=== PATIENT | male | born 1975 ===

== ENCOUNTER 2017-08-11 11:57 | Emergency (ER) | payer OTHER ==
--- NOTE | 2017-08-11 13:20 | UC ---
Skin Complaint HPI - HPI Summary HPI Summary: 8 DAYS OF ITCHY WHELP LIKE RASH DIFFUSELY OVER BODY. NO FEVER. NO RESPIRATORY DIFFICULTY OR TONGUE/LIP SWELLING. ATE AT A [employer] PRIOR TO ONSET OF SX. 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 BENADRYL IS HELPFUL. - History of Current Complaint Chief Complaint: [facility] Time Seen by Provider: 08/11/17 13:08 Stated Complaint: RASH Hx Obtained From: Patient Onset/Duration: Gradual Onset, Lasting Days, Still Present Timing: Constant Onset Severity: Moderate Current Severity: Moderate Pain Intensity: 0 Pain Scale Used: 0-10 Numeric Location: Diffuse Character: Pruritus, Hives, Raised Aggravating Factor(s): Touch Alleviating Factor(s): Antihistamines - BENADRYL - Allergy/Home Medications Allergies/Adverse Reactions: Allergies Allergy/AdvReac Type Severity Reaction Status Date / Time No Known Allergies Allergy Verified 08/11/17 12:19 Home Medications: Home Medications Diphenhydramine HCl [Benadryl Allergy 25 MG CAP] 25 mg PO TID PRN 08/11/17 [ History Confirmed 08/11/17] Review of Systems Constitutional: Negative Skin: Rash Respiratory: Negative Cardiovascular: Negative Gastrointestinal: Negative All Other Systems Reviewed And Are Negative: Yes PMH/Surg Hx/FS Hx/Imm Hx Previously Healthy: Yes - Surgical History Surgical History: Yes Surgery Procedure, Year, and Place: benign tumor removed behind ear - Family History Known Family History: Positive: Hypertension - Social History Alcohol Use: None Substance Use Type: None Smoking Status (MU): Never Smoked Tobacco Physical Exam Triage Information Reviewed: Yes Appearance: Well-Appearing, No Pain Distress, Well-Nourished Vital Signs: Initial Vital Signs Temp 97.6 F 08/11/17 12:16 Pulse 82 08/11/17 12:16 Resp 16 08/11/17 12:16 BP 133/85 08/11/17 12:16 Pulse Ox 99 08/11/17 12:16 Vital Signs Reviewed: Yes Eyes: Positive: Conjunctiva Clear ENT: Positive: Hearing grossly normal Neck: Positive: Supple Respiratory: Positive: No respiratory distress, No accessory muscle use Cardiovascular: Positive: Pulses Normal Abdomen Description: Positive: Soft Musculoskeletal: Positive: No Edema Neurological: Positive: Alert Psychological: Positive: Age Appropriate Behavior Skin: Positive: rashes - RAISED WHEALS OF VARYING SIZES SCATTERED OVER TRUNK AND EXTREMITIES. 2 ON FACE. Course/Dx - Diagnoses Provider Diagnoses: HIVES Discharge - Discharge Plan Condition: Stable Disposition: HOME Prescriptions: predniSONE TAB* [Deltasone TAB*] 50 mg PO DAILY #7 tab Triamcinolone 0.1% CREAM(NF) [Kenalog Cream 0.1%(NF)] 1 applic TOPICAL TID PRN # 80 g PRN Reason: Itching Patient Education Materials: Urticaria (ED) Forms: *Work Release Referrals: No Primary Care Phys,NOPCP [Primary Care Provider] - Additional Instructions: USE DAILY MOISTURIZING LOTION AVOID HEAT AND HOT WATER TAKE OTC ANTIHISTAMINE DAILY (CLARITIN (LORATADINE), ZYRTEC (CETIRIZINE) OR RICHARD (FEXOFENADINE) IN THE MORNING, 50MG BENADRYL AT NIGHT) DO NOT SCRATCH KEEP COOL, CLEAN AND DRY FOLLOW-UP WITH YOUR PCP IN [place]. IF YOUR SYMPTOMS BECOME RECURRENT CONSIDER EVALUATION BY AN DREDGE BOAT ENGINEER. YOU CAN SEE SOMEONE HERE OR BACK HOME IN [place]. [facility] Address: [address], [place] [address] [facility] [address] [place], [place] [address] [place] [address]
== END 2017-08-11 13:36 | disposition home or self-care (01) ==
LOC: UCEAST 11:57
DX: L50.9 Urticaria, unspecified (principal)
CPT/HCPCS: 99202; G0463